=== PATIENT | male | born 1955 | race Native Hawaiian/Other Pacific Islander ===

== ENCOUNTER 2017-04-13 04:26 | Inpatient (IN) | payer BC ==
[2017-04-13] VITALS (17 sets, daily range): BP systolic 82–106; BP diastolic 36–53
[~2017-04-13] VITALS: Ht 154.9 cm; Wt 52.6 kg
--- NOTE | 2017-04-13 04:40 | NUR ---
Pt to room via w/c c/o dizziness and generalized weakness. Pt also sts that for the last month and a half he has been unable to keep food down. Sts he vomits whenever he eats but denies any pain. Pt changed into gown and placed on monitor. Pt ST on monitor. Pt appears pale and gaunt, tenting to the skin and white pasty coating to tongue. Resp even and unlabored. IV established, labs drawn and sent. Pt seen by Dr. Mccoy. Fluid bolus infusing freely to gravity. Family at bedside
[2017-04-13] MEDS ORDERED: ADVIL (04:44)
[2017-04-13] MEDS ORDERED: STOMACH PILL (04:44)
[2017-04-13] MEDS ORDERED: ONDANSETRON 4 MG/2 ML VIAL IV ONE (04:45)
[2017-04-13] MEDS ORDERED: IV NORMAL SALINE 1000 ML BAG IV ONE (04:45)
--- NOTE | 2017-04-13 04:46 | NUR ---
PT STATES TAKES ADVIL AND STOMACH PILL BUT DOES NOT KNOW THE NAME OF IT.
--- NOTE | 2017-04-13 04:52 | NUR ---
Pt to CT via thuy
--- NOTE | 2017-04-13 05:07 | NUR ---
Pt returned from CT via gurney. Resting in position of comfort for self. Family at bedside.
[2017-04-13 05:14] LABS: EOSINOPHILS # (AUTO) 0.2 K/uL (0.0-0.7); EOSINOPHILS % (AUTO) 1.2 % (0.0-7.0); LYMPHOCYTES # (AUTO) 3.3 K/UL (0.8-4.8); LYMPHOCYTES % (AUTO) 23.5 % (20.5-51.5); MEAN CORPUSCULAR HEMOGLOBIN 33.5 UUG (27.0-31.0); MEAN CORPUSCULAR HGB CONC 34 g/dL (32.0-37.0); MEAN CORPUSCULAR VOLUME 98.4 FL (82.0-92.0); MONOCYTES # (AUTO) 0.6 K/UL (0.1-1.30); MONOCYTES % (AUTO) 4.2 % (0.0-11.0); NEUTROPHILS # (AUTO) 9.9 K/UL (1.8-8.9); NEUTROPHILS % (AUTO) 71.1 % (38.5-71.5); PLATELET COUNT (AUTO) 378 K/UL (150-450)
[2017-04-13 05:15] LABS: ALANINE AMINOTRANSFERASE 16 U/L (16-63); ALKALINE PHOSPHATASE 41 U/L (50-136); ASPARTATE AMINOTRANSFERASE 11 U/L (15-37); BILIRUBIN,DIRECT < 0.1 mg/dL (0.0-0.2); BILIRUBIN,TOTAL 0.1 mg/dL (0.2-1.0); CARBON DIOXIDE 21 mmol/L (21-32); CHLORIDE 108 mmol/L (98-107); CREATININE 1.1 mg/dL (0.6-1.3); GLUCOSE 238 mg/dL (74-106); LIPASE 160 U/L (73-393); TOTAL PROTEIN, SERUM 5.1 g/dL (6.4-8.2); UREA NITROGEN, BLOOD 42 mg/dL (7-18)
[2017-04-13 05:23] LABS: HEMOGLOBIN 4.5 G/DL (14.0-18.0); RED BLOOD CELL COUNT(AUTO) 1.33 MIL/UL (4.7-6.1)
[2017-04-13] MEDS ORDERED: ONDANSETRON 4 MG/2 ML VIAL ONE (05:23)
[2017-04-13 05:24] LABS: HEMATOCRIT 13.1 % (40-50)
--- NOTE | 2017-04-13 05:56 | NUR ---
Pt now admits to black stools for approx 2wks and red/brown color vomit for the last month. Second IV established.
[2017-04-13] MEDS ORDERED: IV NS 1000 ML 1,000 ML IV PRN (06:15)
[2017-04-13] MEDS ORDERED: ONDANSETRON 4 MG/2 ML VIAL IV PRN (06:15)
[2017-04-13] MEDS ORDERED: Z GUARD REMEDY PASTE 57 GM TUBE TOP PRN (06:15)
[2017-04-13] MEDS ORDERED: MAGNESIUM HYDROXIDE 30 ML LIQUID UDC PO PRN (06:15)
[2017-04-13] MEDS ORDERED: ZOLPIDEM 5 MG TABLET PO PRN (06:15)
[2017-04-13] MEDS ORDERED: HYDROCODONE/APAP 5-325MG TABLET PO PRN (06:15)
--- NOTE | 2017-04-13 06:23 | NUR ---
Report called to LISY Ulrich. Preparing to transfer pt to the floor.
[2017-04-13] MEDS ORDERED: POTASSIUM CHLORIDE 20 MEQ TAB.PRT.SR PO ONE (06:30)
[2017-04-13] MEDS ORDERED: POTASSIUM CHLORIDE 20 MEQ TAB.PRT.SR ONE (06:38)
[2017-04-13 06:47] LABS: BAND % (MANUAL) 22 % (0-10); EOSINOPHILS % (MANUAL) 2 % (0-8); LYMPHOCYTES % (MANUAL) 20 % (20-40); METAMYELOCYTES % 2 % (0-1); MONOCYTES % (MANUAL) 1 % (2-10); MYELOCYTES % 1 % (0-0); NEUTROPHILS % (MANUAL) 52 % (42-75)
--- NOTE | 2017-04-13 08:00 | NUR ---
AWAKE COOPERATE SKIN VERY PALE AND GEN VERY WEAK NO SOB OR PAIN ON FALL PRECAUTION BED ALARM ON AND CALL LIGHT IN REACH ,INSTRUCTION TO CALL WHEN NEEDED
[2017-04-13] MEDS: ACETAMINOPHEN 325 MG TABLET PO PRN ×2 (08:09→08:12)
--- NOTE | 2017-04-13 08:30 | NUR ---
CONSENT SIGNS FOR BLOOD TRANSFUSION AND START FIRST UNIT ORDER VS TAKEN STABLE TYLENOL GIVEN PRIOR BLOOD TRANSFUSION
[2017-04-13] MEDS ORDERED: PANTOPRAZOLE SODIUM IV 40 MG in IV DEXTROSE 5% 100 ML IV ONE (09:00)
[2017-04-13] MEDS ORDERED: PANTOPRAZOLE SODIUM IV 80 MG in IV DEXTROSE 5% 500 ML IV SCH (09:00)
[2017-04-13 11:39] LABS: *BILIRUBIN,URIN NEGATIVE (NEGATIVE); *BLOOD, URINE NEGATIVE (NEGATIVE); *CLARITY,URINE CLEAR (CLEAR); *COLOR,URINE YELLOW (YELLOW); *KETONES,URINE NEGATIVE (NEGATIVE); *PROTEIN,URINE NEGATIVE (NEGATIVE); *UROBILINOGEN,URINE 0.2 E.U./dl (NORMAL); LEUKOCYTE ESTERASE ,URINE NEGATIVE (NEGATIVE); NITRITE, URINE NEGATIVE (NEGATIVE); PH,URINE 5.5 (5.0-8.0); UGLUCOSE TRACE (NEGATIVE)
[2017-04-13 11:51] LABS: BACTERIA,URINE NONE SEEN /HPF (NONE SEEN); RBC,URINE NONE SEEN /HPF (0-3); SQUAMOUS EPITHELIAL CELL,UR FEW /HPF (NONE SEEN); WBC,URINE 0-3 /HPF (0-3)
--- NOTE | 2017-04-13 12:00 | NUR ---
FIRST UNIT OF BLOOD FINISHED NO REACTION AND WILL CONTINUE SECOND UNIT
[2017-04-13] MEDS ORDERED: ACETAMINOPHEN 650 MG SUPP.RECT RC PRN (12:15)
[2017-04-13] MEDS ORDERED: MORPHINE SULFATE 2 MG/1 ML DISP.SYRIN IV PRN (12:15)
--- NOTE | 2017-04-13 12:30 | NUR ---
SECOND UNIT OF BLOOD ON NOW NO REACTION VS STABLE KEEP NPO ORDER NO N/V OR PAIN
[2017-04-13] MEDS: POTASSIUM CHLORIDE 20 MEQ in IV D5/ 0.9% NACL 1,000 ML IV PRN (14:44)
--- NOTE | 2017-04-13 15:15 | NUR ---
SECOND UNIT OF BLOOD FINISHED NO REACTION VS STABLE NO SOB OR PAIN STATE FEEL LITLE STRONGER
[2017-04-13 16:46] LABS: BASOPHILS % (AUTO) 0.3 % (0.0-2.0); EOSINOPHILS # (AUTO) 0.1 K/uL (0.0-0.7); EOSINOPHILS % (AUTO) 0.9 % (0.0-7.0); LYMPHOCYTES # (AUTO) 2.9 K/UL (0.8-4.8); LYMPHOCYTES % (AUTO) 28.1 % (20.5-51.5); MEAN CORPUSCULAR HEMOGLOBIN 31.4 UUG (27.0-31.0); MEAN CORPUSCULAR HGB CONC 34 g/dL (32.0-37.0); MEAN CORPUSCULAR VOLUME 92.3 FL (82.0-92.0); MONOCYTES # (AUTO) 0.6 K/UL (0.1-1.30); MONOCYTES % (AUTO) 5.6 % (0.0-11.0); NEUTROPHILS # (AUTO) 6.7 K/UL (1.8-8.9); NEUTROPHILS % (AUTO) 65.1 % (38.5-71.5); PLATELET COUNT (AUTO) 240 K/UL (150-450); WHITE BLOOD COUNT (AUTO) 10.3 K/UL (4.0-11.2)
[2017-04-13 16:49] LABS: RED BLOOD CELL COUNT(AUTO) 2.24 MIL/UL (4.7-6.1)
[2017-04-13 17:08] LABS: HEMATOCRIT 20.7 % (40-50)
--- NOTE | 2017-04-13 18:00 | NUR ---
HEMODYNAMIC STATUS STABLE SAFETY MEASURE PROVIDED CALL LIGHT IN REACH AND BED ALARM ON
--- NOTE | 2017-04-13 18:30 | NUR ---
DR LOUISE SEE PATIENT LAB RESULT THIS PM INFORM
--- NOTE | 2017-04-13 19:30 | NUR ---
RECEIVED PATIENT IN BED ALERT ORIENTED, NO SOB NO CHEST PAIN, RHYTHM SINUS RHYTHM CALL LIGHT WITHIN REACH.
[2017-04-13] MEDS: PANTOPRAZOLE SODIUM 40 MG VIAL IV SCH (20:08)
[2017-04-14] VITALS (21 sets, daily range): BP systolic 81–107; BP diastolic 31–64
--- NOTE | 2017-04-14 | NUR ---
CIGARETTE SMOKE SMELLED IN PATIENTS ROOM WHILE PATIENT WAS IN THE RESTROOM. PATIENT ADMITTED TO SMOKING A CIGARETTE IN THE RESTROOM. VERBALIZED TO PATIENT THAT HE CANNOT SMOKE INSIDE THE HOSPITAL DUE TO PROTOCOL AND FIRE HAZARD. CIGARETTES WERE TAKEN FROM PATIENT AND INFORMED PATIENT IT WILL BE RETURNED TO HIM WHEN HE IS DISCHARGED. PATIENT APOLOGIZED AND AGREED.
[2017-04-14] MEDS: POTASSIUM CHLORIDE 20 MEQ in IV D5/ 0.9% NACL 1,000 ML IV PRN ×2 (04:08→14:01)
--- NOTE | 2017-04-14 06:23 | NUR ---
PATIENT SLEPT MOST OF THE NIGHT, NO SOB NO CHEST PAIN NOTED, PATIENT HAS NO COMPLAIN OF DIZZINESS, OR HEADACHE, BP RUN LOW 92/44, CONT TO MONITOR.
[2017-04-14 06:51] LABS: EOSINOPHILS # (AUTO) 0.2 K/uL (0.0-0.7); MONOCYTES # (AUTO) 0.5 K/uL (2.0-10.0); NEUTROPHILS # (AUTO) 4.2 K/uL (1.8-8.9)
--- NOTE | 2017-04-14 06:54 | NUR ---
PATIENT BLOOD PRESSURE 81/56 HR 54, NO COMPLAIN OF DIZZINESS, NO COMPLAIN OF HEADACHE, ENDORSED TO NEXT RN.
[2017-04-14 07:11] LABS: BASOPHILS # (AUTO) 0.1 K/uL (0.0-8.0); BASOPHILS % (AUTO) 0.8 % (0.0-2.0); LYMPHOCYTES # (AUTO) 2.6 K/uL (20.0-40.0); LYMPHOCYTES % (AUTO) 34.2 % (20.5-51.5); MEAN CORPUSCULAR HEMOGLOBIN 32.1 uug (23.8-33.4); MEAN CORPUSCULAR HGB CONC 35 g/dL (32.5-36.3); MEAN CORPUSCULAR VOLUME 92.6 fL (73.0-96.2); MONOCYTES % (AUTO) 7.1 % (0.0-11.0); NEUTROPHILS % (AUTO) 54.9 % (38.5-71.5); PLATELET COUNT (AUTO) 237 K/uL (152-348)
[2017-04-14 07:12] LABS: BILIRUBIN,TOTAL 0.2 mg/dL (0.2-1.0); CREATININE 0.9 mg/dL (0.6-1.3); MAGNESIUM 1.9 mg/dL (1.8-2.4); PHOSPHOROUS 2.5 mg/dL (2.5-4.9); TOTAL PROTEIN, SERUM 4.4 g/dL (6.4-8.2)
[2017-04-14 07:15] LABS: RED BLOOD CELL COUNT(AUTO) 2.11 MIL/uL (4.06-5.63); WHITE BLOOD COUNT (AUTO) 7.6 K/uL (3.6-10.2)
[2017-04-14 07:16] LABS: HEMATOCRIT 19.6 % (36.7-47.1); HEMOGLOBIN 6.8 g/dL (12.5-16.3)
--- NOTE | 2017-04-14 08:00 | NUR ---
RESTING WELL NO SOB OR PAIN NO BLEEDING NOTED ON FALL PRECAUTION CALL WILSON IN REACH CONTINUE ON IVF
[2017-04-14] MEDS: PANTOPRAZOLE SODIUM 40 MG VIAL IV SCH ×2 (08:14→21:07)
--- NOTE | 2017-04-14 08:45 | NUR ---
DR ONEIL KEARNS WAS CALL REGARDING LAB RESULT OF HB/HCT THIS AM WAS 6.8/19,6 AND MESSAGE LEFT
--- NOTE | 2017-04-14 09:15 | NUR ---
DR URMILA RIGGS CALL BACK AND NEW ORDER IN CHART FOR [facility] BLOOD TRANSFUSION
--- NOTE | 2017-04-14 09:30 | NUR ---
DR ANDERSON WAS CALL REGARDING NO ORDER FOR EGD AND PATIENT LAB RESULT AND SITUATION AND MESSAGE LEFT
--- NOTE | 2017-04-14 09:45 | NUR ---
START FIRST UNIT OF BLOOD TODAY JUAN WELL NO REACTION VS STABLE ONLY BP WAS LOW BUT STABLE DR KEARNS AWARE OF LOW BP
[2017-04-14 10:08] LABS: BAND % (MANUAL) 4 % (0-10); BASOPHILS % (MANUAL) 2 % (0-2); EOSINOPHILS % (MANUAL) 3 % (0-8); LYMPHOCYTES % (MANUAL) 27 % (20-40); MONOCYTES % (MANUAL) 5 % (2-10); NEUTROPHILS % (MANUAL) 59 % (42-75)
--- NOTE | 2017-04-14 11:00 | NUR ---
STILL NPO POSS EGD TODAY BY DR ANDERSON EXPLAINED TO PATIENT BUT PATIENT REQUEST EXPLAINED PROCEDURE TO HIM TOO GI NURSE WAS INFORM AND WILL SIGNS CONSENT IN OR AFTER EXPLAINED BY DR ANDERSON
--- NOTE | 2017-04-14 11:45 | NUR ---
TO GI LAB STILL ON BLOOD TRANSFUSION ALMOST FINISHED FAMILY GO DOWN WITH PATIENT
--- NOTE | 2017-04-14 12:30 | NUR ---
BLOOD TRANSFUSION FINISHED IN OR GI LAB SEE OR VS NOTED NO REACTION
[2017-04-14] MEDS ORDERED: GOLYTELY 4000 ML BOTTLE PO ONE (12:45)
--- NOTE | 2017-04-14 13:20 | NUR ---
BACK TO ROOM AWAKE VS STABLE NO SOB OR PAIN
--- NOTE | 2017-04-14 14:25 | NUR ---
START SECOND UNIT OF BLOOD JUAN PROCEDURE WELL NO REACTION VS STABLE BP LOW BUT STABLE NO FEVER
--- NOTE | 2017-04-14 16:00 | NUR ---
SCHEDULE FOR COLONOSCOPY TOMORROW AT 2PM INFORM TO PATIENT AND FAMILY VERBALIZES UNDERSTAND
--- NOTE | 2017-04-14 17:30 | NUR ---
CONSENT SIGNS FOR COLONOSCOPY TOMORROW AND ON FFP JUAN WELL NO REACTION
--- NOTE | 2017-04-14 17:45 | NUR ---
STABLE HEMODYNAMIC BP STILL LOW BUT STABLE NO SOB OR RESPIRATORY DISTRESS NO BLEEDING NOTED SAFETY MEASURE PROCVIDED CALL WILSON IN REACH FAMILY AT BEDSIDE
[2017-04-14 18:24] LABS: BASOPHILS % (AUTO) 0.4 % (0.0-2.0); EOSINOPHILS # (AUTO) 0.2 K/uL (0.0-0.7); HEMATOCRIT 28.2 % (40-50); LYMPHOCYTES # (AUTO) 2.5 K/UL (0.8-4.8); LYMPHOCYTES % (AUTO) 36.4 % (20.5-51.5); MEAN CORPUSCULAR HEMOGLOBIN 29.6 UUG (27.0-31.0); MEAN CORPUSCULAR HGB CONC 32 g/dL (32.0-37.0); MEAN CORPUSCULAR VOLUME 92.5 FL (82.0-92.0); MONOCYTES # (AUTO) 0.5 K/UL (0.1-1.30); MONOCYTES % (AUTO) 6.7 % (0.0-11.0); NEUTROPHILS # (AUTO) 3.7 K/UL (1.8-8.9); NEUTROPHILS % (AUTO) 53.5 % (38.5-71.5); PLATELET COUNT (AUTO) 238 K/UL (150-450); RED BLOOD CELL COUNT(AUTO) 3.05 MIL/UL (4.7-6.1); WHITE BLOOD COUNT (AUTO) 6.9 K/UL (4.0-11.2)
--- NOTE | 2017-04-14 19:30 | NUR ---
RECEIVED SHIFT REPORT FROM PREVIOUS SHIFT NURSE. PATIENT IN STABLE CONDITION, NO S/S OF DISTRESS. NOTIFIED BY PREVIOUS SHIFT NURSE THAT PATIENT WILL HAVE COLONOSCOPY DONE AT 1400 ON 04/15/17 AND WILL BE NPO AFTER MIDNIGHT TONIGHT. PATIENT DOES NOT COMPLAIN OF ANY PAIN. BED IN LOCKED/LOW POSITION. STOOL OB SPECIMEN COLLECTED AND SENT TO LAB. CALL LIGHT WITHIN REACH. COMFORT AND SAFETY WILL BE PROVIDED FOR PATIENT.
[2017-04-15] VITALS: BP 105/57
[2017-04-15 04:00] VITALS: BP 88/51
--- NOTE | 2017-04-15 05:15 | NUR ---
PATIENT SLEPT COMFORTABLY THROUGHOUT THE NIGHT. STABLE CONDITION WITH NO S/S OF DISTRESS. NO COMPLAINTS OF PAIN. NO SIGNS OF BLEEDING. PATIENT HAS BEEN NPO SINCE MIDNIGHT AND WILL CONTINUE TO BE UNTIL COLONOSCOPY SCHEDULED AT 1400. BED IN LOCKED/LOW POSITION WITH SIDE RAILS UP X2. SAFETY AND COMFORT PROVIDED FOR PATIENT THROUGHOUT SHIFT.
--- NOTE | 2017-04-15 05:49 | NUR ---
PATIENT'S BLOOD PRESSURE RECHECKED: 79/58. CHANGED BED POSITION TO [place]SE [place] BED POSITION. IV FLUIDS NS STARTED AT 100 ML/HR. PATIENT IS ALERT/ORIENTED. NO COMPLAINTS OF HEADACHE, DIZZINESS. WILL CONTINUE TO MONITOR BLOOD PRESSURE.
--- NOTE | 2017-04-15 06:00 | NUR ---
RAPID RESPONSE CALLED AT 0600 FOR PATIENTS, BP 79/58. DR. CHATTERJEE INFORMED OF SITUATION AND ORDERED NS 500 ML IV BOLUS X2. PATIENT PLACED IN RE[place]SE [place] POSITION. CBC AND CMP STAT ORDER INITIATED.
--- NOTE | 2017-04-15 06:05 | NUR ---
ADMINISTERED FIRST NS 500 ML IV BOLUS TO PATIENT.
--- NOTE | 2017-04-15 06:05 | NUR ---
BLOOD SUGAR CHECKED: 150.
--- NOTE | 2017-04-15 06:10 | NUR ---
PATIENT'S BP CHECKED: 85/45.
[2017-04-15 06:13] LABS: BASOPHILS % (AUTO) 0.7 % (0.0-2.0); EOSINOPHILS # (AUTO) 0.2 K/uL (0.0-0.7); EOSINOPHILS % (AUTO) 3.1 % (0.0-7.0); HEMATOCRIT 26.2 % (40-50); HEMOGLOBIN 8.8 G/DL (14.0-18.0); LYMPHOCYTES # (AUTO) 2.3 K/UL (0.8-4.8); LYMPHOCYTES % (AUTO) 39.6 % (20.5-51.5); MEAN CORPUSCULAR HEMOGLOBIN 31.1 UUG (27.0-31.0); MEAN CORPUSCULAR HGB CONC 34 g/dL (32.0-37.0); MEAN CORPUSCULAR VOLUME 92.5 FL (82.0-92.0); MONOCYTES # (AUTO) 0.3 K/UL (0.1-1.30); MONOCYTES % (AUTO) 6.1 % (0.0-11.0); NEUTROPHILS # (AUTO) 2.9 K/UL (1.8-8.9); NEUTROPHILS % (AUTO) 50.5 % (38.5-71.5); PLATELET COUNT (AUTO) 256 K/UL (150-450); RED BLOOD CELL COUNT(AUTO) 2.84 MIL/UL (4.7-6.1); WHITE BLOOD COUNT (AUTO) 5.7 K/UL (4.0-11.2)
[2017-04-15] MEDS: POTASSIUM CHLORIDE 20 MEQ in IV D5/ 0.9% NACL 1,000 ML IV PRN ×2 (06:16→18:36)
--- NOTE | 2017-04-15 06:20 | NUR ---
PATIENT'S BP RECHECKED: 94/64. PATIENT IN STABLE CONDITION. NO SIGNS/SYMPTOMS OF DISTRESS. NO COMPLAINTS OF HEADACHE OR DIZZINESS. WILL CONTINUE TO MONITOR PATIENT AND WILL ENDORSE ALL PERTINENT INFORMATION TO NEXT SHIFT NURSE.
[2017-04-15 06:22] LABS: CREATININE 0.8 mg/dL (0.6-1.3); POTASSIUM 3.7 mmol/L (3.5-5.1)
[2017-04-15 06:28] LABS: BILIRUBIN,TOTAL 0.2 mg/dL (0.2-1.0); TOTAL PROTEIN, SERUM 4.2 g/dL (6.4-8.2)
[2017-04-15] MEDS ORDERED: IV NORMAL SALINE 500 ML IV ONE ×2 (06:30)
--- NOTE | 2017-04-15 06:30 | NUR ---
NS 500 ML IV BOLUS ADMINISTERED TO PATIENT. Addendum: 04/15/17 at 0642 by MACARIO SWARTZ RN SECOND NS 500 ML IV BOLUS ADMINISTERED TO PATIENT.
--- NOTE | 2017-04-15 07:15 | NUR ---
Received report from stocklayer nurse, patient in bed awake, noted bp to be low, notified Dr Gonzalez, no orders received. Patient ambulating safely to restroom.
[2017-04-15] MEDS: PANTOPRAZOLE SODIUM 40 MG VIAL IV SCH ×2 (09:00→20:16)
[2017-04-15 11:49] VITALS: BP 92/57
[2017-04-15 15:54] VITALS: BP 90/59
--- NOTE | 2017-04-15 19:13 | NUR ---
Patient has been NPO until 6pm where he was allowed to have a clear liquid diet. Dr. draper will perform Colonoscopy at 830am on 04/16/17. Patient is to be NPO after midnight. No evidence of distress noted today, bed is currently in low position, side rails up x2.
--- NOTE | 2017-04-15 19:30 | NUR ---
RECEIVED SHIFT REPORT FROM PREVIOUS SHIFT NURSE. PATIENT VISITED AND IS IN STABLE CONDITION WITH NO S/S OF DISTRESS. PATIENT ON CLEAR DIET AND NPO AFTER MIDNIGHT FOR COLONOSCOPY AT 0830 IN THE MORNING. NO COMPLAINTS OF PAIN, HEADACHE, OR DIZZINESS. SAFETY AND COMFORT WILL BE PROVIDED THROUGHOUT SHIFT.
[2017-04-15 20:00] VITALS: BP 86/42
[2017-04-16 04:52] VITALS: BP 96/57
--- NOTE | 2017-04-16 06:24 | NUR ---
PATIENT SLEPT THROUGHOUT THE NIGHT WITH NO COMPLAINTS OF PAIN, DIZZINESS, HEADACHE, OR FEELING COLD/CHILLS. PATIENTS BP WNL FOR PATIENTS BASELINE. PATIENT IS IN STABLE CONDITION. NO S/S OF DISTRESS. BED IN LOCKED/LOW POSITION WITH SIDE RAILS UP X2 AND CALL LIGHT WITHIN REACH. SAFETY AND COMFORT WILL CONTINUE TO BE PROVIDED.
--- NOTE | 2017-04-16 07:20 | NUR ---
RECEIVED REPORT FROM BRANCH LEAD NURSE, PATIENT IN BED AWAKE, NO EVIDENCE OF DISTRESS NOTED, BED IN LOW POSITION, SIDE RAILS UP X2. PATIENT VOICED BEING FRUSTRATED ABOUT WAITING FOR PROCEDURE SINCE YESTERDAY.
[2017-04-16] MEDS: POTASSIUM CHLORIDE 20 MEQ in IV D5/ 0.9% NACL 1,000 ML IV PRN (07:30)
[2017-04-16] MEDS: PANTOPRAZOLE SODIUM 40 MG VIAL IV SCH (09:00)
[2017-04-16 11:42] VITALS: BP 124/70
[2017-04-16] MEDS ORDERED: IV NORMAL SALINE 250 ML IV ONE (11:46)
[2017-04-16] MEDS ORDERED: IOHEXOL 300MG/ML 100 ML INFUS..BTL ONE (11:46)
[2017-04-16] MEDS ORDERED: ACET650T10 PO (13:27)
[2017-04-16] MEDS ORDERED: PANT40TA2 PO (13:27)
[2017-04-16] MEDS ORDERED: LIDOCAINE HCL 2% 20 ML VIAL MC ONE (15:39)
[2017-04-16] MEDS ORDERED: PROPOFOL 200 MG/20 ML BOTTLE IV ONE ×2 (15:39)
[2017-04-16] MEDS ORDERED: LIDOCAINE HCL 1% 20 ML VIAL MC ONE (15:39)
--- NOTE | 2017-04-16 16:00 | NUR ---
PATIENT WAS GIVEN DISCHARGE INSTRUCTIONS BY FACILITATION OF PLASTICS FITTER ON THE PHONE. PATIENT WAS INSTRUCTED TO FOLLOW UP WITH DR CARRERO IN A WEEK FOR RESULTS OF BIOPSY. IV WAS REMOVED, ALL BELONGINGS WERE GIVEN BACK TO PATIENT, AND PATIENT WAS PICKED UP BY FRIEND.
== END 2017-04-16 15:40 | disposition home or self-care (01) | DRG 811 ==
LOC: ER 04:29 → TELE 06:24 → MED 04-15 19:28
PROVIDERS: ADMIT Nurse Practitioner Acute Care; ATTEND Internal Medicine
PROC: 30233N1 Transfusion of Nonautologous Red Blood Cells into Peripheral Vein, Percutaneous Approach (ICD-10-PCS; principal; 2017-04-13)
PROC: 30233K1 Transfusion of Nonautologous Frozen Plasma into Peripheral Vein, Percutaneous Approach (ICD-10-PCS; 2017-04-14)
PROC: 0DB68ZX Excision of Stomach, Via Natural or Artificial Opening Endoscopic, Diagnostic (ICD-10-PCS; 2017-04-14)
PROC: 0DBP8ZX Excision of Rectum, Via Natural or Artificial Opening Endoscopic, Diagnostic (ICD-10-PCS; 2017-04-16)
PROC: 0DBN8ZZ Excision of Sigmoid Colon, Via Natural or Artificial Opening Endoscopic (ICD-10-PCS; 2017-04-16)
DX: D62 Acute posthemorrhagic anemia (principal); K29.51 Unspecified chronic gastritis with bleeding; E83.51 Hypocalcemia; E88.09 Other disorders of plasma-protein metabolism, not elsewhere classified; D72.829 Elevated white blood cell count, unspecified; E11.9 Type 2 diabetes mellitus without complications; E87.6 Hypokalemia; K25.9 Gastric ulcer, unspecified as acute or chronic, without hemorrhage or perforation; F17.210 Nicotine dependence, cigarettes, uncomplicated; K63.5 Polyp of colon; K64.8 Other hemorrhoids; K59.00 Constipation, unspecified; F10.10 Alcohol abuse, uncomplicated; Y90.9 Presence of alcohol in blood, level not specified; T39.395A Adverse effect of other nonsteroidal anti-inflammatory drugs [NSAID], initial encounter; Y92.009 Unspecified place in unspecified non-institutional (private) residence as the place of occurrence of the external cause
CPT/HCPCS: 36415; 70030-TC; 71010; 82378; 83605; 83690; 83735; 84100; 85025; 85730; 86850; 86900; 86901; 86920; 87040; 87086; 93005; A4217; A4663; C9113; J2405; J3480; J3490; J7030; J7040; J7042; J7050; J7060; P9016-BL; P9017-BL; P9021; Q9967